=== PATIENT | male | born 1975 | race Two or more races ===

== ENCOUNTER 2018-05-15 09:45 | Emergency (ER) | payer OTHER ==
[~2018-05-15] VITALS: Ht 190.5 cm; Wt 107.0 kg
[2018-05-15 09:50] VITALS: Ht 190.5 cm; Wt 107.0 kg
[2018-05-15] MEDS ORDERED: SOD CHLORIDE 0.9% 1,000 ML IV STA (09:52)
--- NOTE | 2018-05-15 10:14 | ERD ---
ER Documentation Chief Complaint Chief Complaint april#39 FROM HOME DUE TO SNYCOPAL EPISODE HPI This is a 42-year-old male who presents to the emergency room via EMS for syncopal episode. The patient works in the courts. He states that it was a stressful week and stressful event today. He started to have a mild prodrome of syncope and had a witnessed syncopal event. No witnessed seizure activity no postictal state. The patient was helped to the ground without trauma. The patient's Accu-Chek in the field was normal. The patient has noted a history of prediabetes with a strong family history of diabetes. Accu-Chek was greater than 300. Again he denied any prodrome of chest pain shortness of breath prolate of pain or headache. He does have a mild headache now that is frontal and throbbing, 3-10. ROS All systems reviewed and are negative except as per history of present illness. Medications Home Meds Active Scripts Metformin* (Glucophage*) 500 Mg Tab, 500 MG PO BID for 30 Days, TAB Prov:COLLIN NUNEZ MD 05/15/18 Reported Medications Naproxen* (Aleve*) 220 Mg Capsule, 220 MG PO BID, #60 CAP 05/15/18 Allopurinol* (Allopurinol*) Unknown Strength Tablet, 1 TAB PO QHS, TAB 05/15/18 Allergies Allergies: Coded Allergies: acetaminophen (Verified Allergy, Unknown, 05/15/18) codeine (Unverified Allergy, Unknown, 05/15/18) hydrocodone (Verified Allergy, Unknown, 05/15/18) PMhx/Soc History of Surgery: Yes (Laminectomy) Anesthesia Reaction: No Hx Neurological Disorder: No Hx Respiratory Disorders: No Hx Cardiac Disorders: No Hx Psychiatric Problems: No Hx Miscellaneous Medical Probl: Yes (Pre-diabetic, Gout Arthritis) Hx Alcohol Use: No Hx Substance Use: No Hx Tobacco Use: No Smoking Status: Never smoker FmHx Family History: diabetes Physical Exam Vitals Vital Signs Date Temp Pulse Resp B/P (MAP) Pulse Ox O2 O2 Flow FiO2 Time Delivery Rate 05/15/18 98.0 66 14 133/77 100 Room Air 11:45 (95) 05/15/18 98.2 84 20 134/80 96 09:50 (98) Physical Exam General: Well developed, well nourished, no acute distress Head: Normocephalic, atraumatic. Eyes: Pupils equally reactive, EOM intact ENT: Moist mucous membranes Neck: Supple, no lymphadenopathy Respiratory: Lungs clear bilaterally, no distress Cardiovascular: RRR, no murmurs, rubs, or gallops Abdominal: Soft, non-tender, non-distended, no peritoneal signs : Deferred MSK: No edema, no unilateral swelling, 5/5 strength Neurologic: Alert and oriented, moving all extremities, normal speech, no focal weakness, no cerebellar signs Skin: No rash Psych: Normal mood Result Diagram: 05/15/18 1009 05/15/18 1009 Results 24 hrs Laboratory Tests Test 05/15/18 09:52 05/15/18 10:09 05/15/18 10:13 05/15/18 10:49 Blood Gas Blood arterial Specimen Source Arterial Blood 05/15/2018 10:00: Date Drawn 01 AM Arterial Blood VENOUS LINE Gas Puncture Site Russel Test N/A Venous Blood pH 7.392 Venous Blood 41.1 mmHG pCO2 (Temp Corrected) Venous Blood pO2 60.0 mmHG (Temp Corrected) Venous Blood 24.4 mmol/L HCO3 Venous Blood 92.3 mmHG Oxygen Saturation Venous Blood -0.5 mmol/L Base Excess Venous Blood 16.7 g/dl Total Hemoglobin Venous Blood 91.7 % Oxyhemoglobin Venous Blood 0.4 % Methemoglobin Blood Gas A-a O2 40.5 mmHg Differential Carboxyhemoglobi 0.2 % n Blood Gas 37.0 C Temperature Blood Gas ROOM AIR Modality FiO2 21.0 % Blood Gas RT Notified Whom Blood Gas 05/15/2018 10:08: Notified Time 47 AM White Blood 5.6 10^3/ul Count Red Blood Count 5.27 10^6/ul Hemoglobin 15.6 g/dl Hematocrit 44.8 % Mean Corpuscular 85.0 fl Volume Mean Corpuscular 29.6 pg Hemoglobin Mean Corpuscular 34.8 g/dl Hemoglobin Emily nt Red Cell 12.4 % Distribution Width Platelet Count 165 10^3/UL Mean Platelet 12.4 fl Volume Immature 0.400 % Granulocytes % Neutrophils % 72.0 % Lymphocytes % 20.6 % Monocytes % 5.6 % Eosinophils % 0.9 % Basophils % 0.5 % Nucleated Red 0.0 /100WBC Blood Cells % Immature 0.020 10^3/ul Granulocytes # Neutrophils # 4.0 10^3/ul Lymphocytes # 1.2 10^3/ul Monocytes # 0.3 10^3/ul Eosinophils # 0.1 10^3/ul Basophils # 0.0 10^3/ul Nucleated Red 0.0 10^3/ul Blood Cells # Sodium Level 137 mmol/L Potassium Level 4.2 mmol/L Chloride Level 100 mmol/L Carbon Dioxide 23 mmol/L Level Anion Gap 14 Blood Urea 13 mg/dl Nitrogen Creatinine 0.76 mg/dl Est Glomerular > 60 mL/min Filtrat Rate mL/min Glucose Level 400 mg/dl Calcium Level 9.6 mg/dl Troponin I < 0.012 ng/ml Bedside Glucose 379 mg/dL Bedside Urine pH 6.0 (LAB) Bedside Urine Negative Protein (LAB) Bedside Urine 0.50% Glucose (UA) Bedside Urine 1+ Ketones (LAB) Bedside Urine Trace-intact Blood Bedside Urine Negative Nitrite (LAB) Bedside Urine Negative Leukocyte Estera se (L Current Medications Medications Dose Sig/Ananth Start Time Status Last (Trade) Ordered Route PRN Stop Time Admin Dose Reason Admin Sodium 1,000 ml @ Q1H STAT 05/15/18 DC 05/15/18 Chloride 1,000 mls/hr IV 09:52 10:33 05/15/18 11:01 Ibuprofen 800 mg ONCE ONCE 05/15/18 DC 05/15/18 (Motrin) PO 10:30 10:33 05/15/18 10:37 Procedures/MDM EKG, MONITORS, & DIAGNOSTIC IMAGING: EKG: I reviewed and interpreted a 12-lead EKG. Rhythm: Normal sinus rhythm ST Changes: No contiguous ST segment elevations T waves: No contiguous T wave inversions Impression: No evidence of acute cardiac ischemia LAB INTERPRETATION: I reviewed the laboratory testing and it shows hyperglycemia but no evidence of anion gap acidosis therefore no consistent findings with diabetic ketoacidosis MEDICAL DECISION MAKING: Patient's presentation is very consistent with likely vasovagal versus nonspecific syncope. The patient had no prodrome of chest pain shortness of breath or headache suggestive of PE, arrhythmia, ACS or subarachnoid hemorrhage. There is no witnessed seizure activity the patient had no postictal state. The patient does have a mild headache right now but this is likely related to the syncopal episode. He does have a nonfocal neurologic exam and I do not believe CT imaging of the brain is necessary at this time. Patient is noted to have hyperglycemia with a strong family history of diabetes. The patient's hyperglycemia is greater than 300 and DKA screening will be initiated but low clinical concern for this. Venous blood gas reassuring. Patient may benefit from initiation of metformin. His hyperglycemia could be contributing to mild dehydration and potentially contributing to his episode of syncope today. He was strongly advised to follow-up with primary care physician as the patient likely has a new diagnosis of diabetes. ER COURSE: * Patient can have an IV fluids. This is likely to improve his hyperglycemia. Hyperglycemia without DKA. The patient would benefit from initiation of metformin. He is advised to follow-up with primary care physician * Patient's hyperglycemia has possibly contributed to his syncopal episode. * Patient remained stable and can be safely discharged. CONSULTATION: None DISPOSITION PLAN: The patient does not have an identifiable emergent medical condition that warrants inpatient hospitalization at this time. The patient is deemed safe for discharge with outpatient follow-up. We discussed follow up with the patient's primary care doctor within 24 to 48 hours as needed. We also discussed return to the emergency room for worsening symptoms or worsening condition. Outpatient referral: None required Discharge Medications: Metformin 500 twice daily Departure Diagnosis: Primary Impression: Near syncope Additional Impression: New onset type 2 diabetes mellitus Condition: Stable COLLIN NUNEZ MD May 15, 2018 10:13
[2018-05-15] MEDS ORDERED: IBUPROFEN 800 MG TAB PO ONE (10:30)
[2018-05-15] MEDS ORDERED: ALLO100T PO (10:37)
[2018-05-15] MEDS ORDERED: NAPR220C2 PO (10:38)
[2018-05-15] MEDS ORDERED: METF-849 PO (11:34)
[2018-05-15 11:45] VITALS: BP 133/77; PULSE 66; RESP 14
== END 2018-05-15 11:55 | disposition home or self-care (01) ==
LOC: E/R 09:45
DX: R55 Syncope and collapse (principal); E11.9 Type 2 diabetes mellitus without complications
CPT/HCPCS: 36415; 80048; 81003; 82803; 82962; 84484; 85025; 93005; 99284; J7030